=== PATIENT | male | born 1955 | race Caucasian/White ===

== ENCOUNTER 2018-08-21 07:33 | Emergency (ER) | payer OTHER ==
[2018-08-21] MEDS: ACETAMINOPHEN 325 MG TAB PO (08:03)
== END 2018-08-21 08:37 | disposition home or self-care (01) ==
LOC: FTE 07:33
DX: J02.9 Acute pharyngitis, unspecified (principal); I10 Essential (primary) hypertension; E11.9 Type 2 diabetes mellitus without complications; Z79.4 Long term (current) use of insulin; Z79.82 Long term (current) use of aspirin
CPT/HCPCS: 99283; Z7502

== ENCOUNTER 2019-01-06 08:29 | Day surgery (SDC) | payer OTHER ==
[2019-01-06] MEDS ORDERED: LIDOCAINE 4% SOLUTION 50 ML BTL (09:35)
[2019-01-06] MEDS ORDERED: MIDAZOLAM 1 MG/ML 2 ML INJ ×2 (11:37)
[2019-01-06] MEDS ORDERED: FENTAnyl 50 MCG/ML VIAL (11:37)
== END 2019-01-06 12:23 | disposition home or self-care (01) ==
LOC: GIL 08:29
DX: Z12.11 Encounter for screening for malignant neoplasm of colon (principal); K29.50 Unspecified chronic gastritis without bleeding; D12.4 Benign neoplasm of descending colon; K64.1 Second degree hemorrhoids; K20.8 Other esophagitis; K29.30 Chronic superficial gastritis without bleeding; E11.9 Type 2 diabetes mellitus without complications; I10 Essential (primary) hypertension
CPT/HCPCS: 43239; 88305; 88312